=== PATIENT | male | born 1955 | race Caucasian/White ===

== ENCOUNTER 2024-04-29 11:34 | Emergency (ER) | payer OTHER ==
[~2024-04-29] VITALS: Ht 177.8 cm; Wt 90.9 kg
[2024-04-29 12:03] VITALS: BP 147/81; PULSE 91; RESP 16; TEMP 98.8; O2SAT 98
== END 2024-04-29 15:17 ==
LOC: EDBD 11:38 → EMS 11:38
DX: J40 Bronchitis, not specified as acute or chronic (principal); F17.210 Nicotine dependence, cigarettes, uncomplicated; E11.9 Type 2 diabetes mellitus without complications
CPT/HCPCS: 71250; 82962; 99284